=== PATIENT | male | born 1990 | race Caucasian/White ===

== ENCOUNTER 2020-05-12 21:03 | Emergency (ER) | payer MEDICAID ==
[~2020-05-12] VITALS: Ht 175.3 cm; Wt 53.1 kg
[2020-05-12 22:30] LABS: CALCIUM, SERUM 9.1 mg/dL (8.5-10.1); CREATININE 0.6 mg/dL (0.6-1.3); POTASSIUM 3.3 mmol/L (3.5-5.1)
[2020-05-12 22:36] LABS: APPEARANCE,URINE Clear (CLEAR); BASOPHILS # (AUTO) 0.1 /CMM (0.0-0.2); BASOPHILS % (AUTO) 1.1 % (0.0-2.0); BILIRUBIN,URINE Negative (NEGATIVE); BLOOD, URINE Negative Ery/uL (NEGATIVE); COLOR,URINE Yellow (YELLOW); EOSINOPHILS % (AUTO) 0.5 % (0.0-6.0); HEMATOCRIT 42 % (39-51); HEMOGLOBIN 13.8 g/dL (13.5-17.5); KETONES,URINE Negative (NEGATIVE); LEUKOCYTE ESTERASE ,URINE Negative (NEGATIVE); LYMPHOCYTES # (AUTO) 1.9 /CMM (0.8-4.8); LYMPHOCYTES % (AUTO) 26.6 % (20.0-44.0); MEAN CORPUSCULAR HGB CONC 33 g/dl (31.0-36.0); MEAN CORPUSCULAR VOLUME 100 fL (80-96); MONOCYTES # (AUTO) 0.5 /CMM (0.1-1.30); MONOCYTES % (AUTO) 6.8 % (2.0-12.0); NEUTROPHILS # (AUTO) 4.7 /CMM (1.8-8.9); NITRITE, URINE Negative (NEGATIVE); PH,URINE 7.5 (5.0-8.0); PLATELET COUNT (AUTO) 168 /CMM (150-450); PROTEIN,URINE Negative (NEGATIVE); RED BLOOD CELL COUNT(AUTO) 4.22 MIL/uL (4.5-6.0); UGLUCOSE Negative (NEGATIVE); UROBILINOGEN,URINE 0.2 EU/dL (0.2); WHITE BLOOD COUNT (AUTO) 7.2 K/uL (4.3-11.0)
[2020-05-12 22:38] LABS: ALBUMIN 3.6 g/dL (3.4-5.0); BILIRUBIN,DIRECT 0.4 mg/dL (0.0-0.2); BILIRUBIN,TOTAL 0.7 mg/dL (0.2-1.0); TOTAL PROTEIN, SERUM 7.8 g/dL (6.4-8.2)
--- NOTE | 2020-05-12 22:51 | NUR ---
PATIENT CAME TO ER BED 10 C/O VOMITING BLOOD AND NOTICED BLOOD IN THE STOOL FOR ABOUT 1x MONTH. PT STATES THAT HE HAS BEEN DRINKING ALCOHOL EVERYDAY. DENIES EATING BEETS, LICORICE, OR ANY OTHER RED COLORED FOOD. A/Ox4. NO SOB. BREATHING EVENLY AND UNLABORED ON ROOM AIR.
--- NOTE | 2020-05-12 23:42 | NUR ---
Patient discharged to home in stable condition. Written and verbal after care instructions given. Patient verbalizes understanding of instruction.
[2020-05-12 23:43] VITALS: BP 132/80
== END 2020-05-12 23:43 | disposition home or self-care (01) ==
LOC: ER 21:09
DX: K29.20 Alcoholic gastritis without bleeding (principal); F10.10 Alcohol abuse, uncomplicated; Y90.9 Presence of alcohol in blood, level not specified
CPT/HCPCS: 36415; 80048-TC; 80076-TC; 81000-TC; 82272-TC; 83690-TC; 85025-TC

== ENCOUNTER 2020-06-16 21:13 | Emergency (ER) | payer MEDICAID ==
--- NOTE | 2020-06-16 23:05 | NUR ---
CALLED FOR TRIAGE, NO ANSWER
--- NOTE | 2020-06-16 23:34 | NUR ---
CALLED FOR TRIAGE , NO ANSWER
== END 2020-06-16 23:36 | disposition left against medical advice (07) ==
LOC: ER 21:14
DX: Z02.89 Encounter for other administrative examinations (principal); Z53.21 Procedure and treatment not carried out due to patient leaving prior to being seen by health care provider

== ENCOUNTER 2022-05-09 20:53 | Emergency (ER) | payer MEDICAID ==
[~2022-05-09] VITALS: Ht 185.4 cm; Wt 63.5 kg
[2022-05-09 21:50] VITALS: BP 134/82
--- NOTE | 2022-05-09 23:17 | NUR ---
Patient discharged to home in stable condition. Written and verbal after care instructions given. Patient verbalizes understanding of instruction.
== END 2022-05-09 23:16 | disposition home or self-care (01) ==
LOC: ER 20:56
DX: K40.90 Unilateral inguinal hernia, without obstruction or gangrene, not specified as recurrent (principal); F17.200 Nicotine dependence, unspecified, uncomplicated

== ENCOUNTER 2022-11-08 23:34 | Inpatient (IN) | payer MEDICAID ==
[~2022-11-08] VITALS: Ht 162.6 cm; Wt 61.2 kg
[2022-11-09] VITALS (80 sets, daily range): BP systolic 73–170; BP diastolic 29–102
[2022-11-09] MEDS ORDERED: LORAZEPAM INJ 2 MG/ML VIAL ONE ×2 (00:24→03:39)
[2022-11-09] MEDS ORDERED: ONDANSETRON HCL/PF 4 MG/2 ML VIAL ONE (00:25)
[2022-11-09] MEDS ORDERED: ONDANSETRON HCL/PF 4 MG/2 ML VIAL IV ONE (00:30)
[2022-11-09] MEDS ORDERED: LORAZEPAM INJ 2 MG/ML VIAL IV ONE ×3 (00:30→03:30)
[2022-11-09] MEDS ORDERED: IV NS 0.9% 1,000 ML BAG IV ONE (00:30)
--- NOTE | 2022-11-09 00:30 | NUR ---
Pt is noted alert, responsive as he came from home C/O N/V/D and Dizziness since 4PM and He admited off taken [place] and smoking. Pt care continue.
--- NOTE | 2022-11-09 00:37 | NUR ---
FILM FLAT INSPECTOR AT PT'S BEDSIDE
--- NOTE | 2022-11-09 00:38 | NUR ---
Pt is noted nonresponsive as MD is noted. Pt care continue.
[2022-11-09] MEDS ORDERED: Thiamine 100 MG/ML VIAL ONE (00:39)
--- NOTE | 2022-11-09 00:39 | NUR ---
is at bed assessing Pt . Pt care continue.
--- NOTE | 2022-11-09 00:40 | NUR ---
Ativan 1mg IVP wasted with the Help off HARRIETT Ulloa. Pt care continue.
--- NOTE | 2022-11-09 00:54 | NUR ---
Ativen 1mg IVP is held due to Pt change in conditions. Pt care continue.
[2022-11-09] MEDS ORDERED: Magnesium 1GM/D5W 100ML PREMIX 100 ML IV ONE (00:56)
[2022-11-09] MEDS ORDERED: Thiamine 500 MG in IV D5W 50 ML IV ONE (01:00)
[2022-11-09] MEDS ORDERED: Magnesium 1 GM/2 ML VIAL IV ONE (01:00)
[2022-11-09 01:06] LABS: BASOPHILS % (AUTO) 0.2 % (0.0-2.0); LYMPHOCYTES # (AUTO) 1.5 K/uL (0.8-4.8); LYMPHOCYTES % (AUTO) 14.1 % (20.0-44.0); MEAN CORPUSCULAR HGB CONC 31 g/dl (31.0-36.0); MEAN CORPUSCULAR VOLUME 90 fL (80-96); MONOCYTES # (AUTO) 0.8 K/uL (0.1-1.30); MONOCYTES % (AUTO) 7.8 % (2.0-12.0); NEUTROPHILS # (AUTO) 8.2 K/uL (1.8-8.9); NEUTROPHILS % (AUTO) 77.9 % (43.0-81.0); RED BLOOD CELL COUNT(AUTO) 1.77 MIL/uL (4.5-6.0); WHITE BLOOD COUNT (AUTO) 10.5 K/uL (4.3-11.0)
[2022-11-09 01:07] LABS: HEMOGLOBIN 4.8 g/dL (13.5-17.5)
--- NOTE | 2022-11-09 01:07 | NUR ---
HGB 4.8 HCT 16 made aware
[2022-11-09 01:08] LABS: HEMATOCRIT 16 % (39-51); PLATELET COUNT (AUTO) 43 K/uL (150-450)
[2022-11-09 01:10] LABS: ALCOHOL, BLOOD < 3 mg/dL (0-0); CALCIUM, SERUM 7.3 mg/dL (8.5-10.1); CREATININE 1.4 mg/dL (0.6-1.3); MAGNESIUM 1.3 mg/dL (1.8-2.4); POTASSIUM 4.6 mmol/L (3.5-5.1); SERUM AMMONIA 141 umol/L (11-32)
--- NOTE | 2022-11-09 01:10 | NUR ---
COVID ANTIGEN SWAB COLLECTED AND SENT TO LAB
[2022-11-09 01:15] LABS: BILIRUBIN,DIRECT 4.7 mg/dL (0.0-0.2); BILIRUBIN,TOTAL 7.4 mg/dL (0.2-1.0); TOTAL PROTEIN, SERUM 5.6 g/dL (6.4-8.2)
[2022-11-09 01:21] LABS: ALBUMIN 1.4 g/dL (3.4-5.0)
[2022-11-09] MEDS ORDERED: IV NS 0.9% 1,000 ML IV ONE (01:30)
--- NOTE | 2022-11-09 01:44 | NUR ---
[facility] edna in [facility] - 11/09/22 at 0150 by [email or web address] Pt care continuer as he refused to signed Blood consent and he is been monitor closely .
--- NOTE | 2022-11-09 01:45 | NUR ---
PT'S MOTHER MELISSA SIGNED BLOOD TRANSFUSION CONSENT FORM; VERBALIZED UNDERSTANDING.
--- NOTE | 2022-11-09 01:51 | NUR ---
Pt care continue as consent is now by Pt Mother as pt is been forgetful.
--- NOTE | 2022-11-09 01:55 | NUR ---
CALLED PANEL, ONCAL: LOYD HURD
--- NOTE | 2022-11-09 02:08 | NUR ---
PAGED [employer] FOR THE THIRD TIME.
[2022-11-09 02:10] LABS: BASOPHILS % (MANUAL) 0 % (0.0-2.0); EOSINOPHILS % (MANUAL) 0 % (0-4); LYMPHOCYTES % (MANUAL) 12 % (16-48); MONOCYTES % (MANUAL) 9 % (0-11.0); NEUTROPHILS % (MANUAL) 79 (42-76)
--- NOTE | 2022-11-09 02:28 | NUR ---
DR TOSHA RUSSO, BACK UP WAS PAGED FOR PANEL CALL.
[2022-11-09] MEDS ORDERED: PHYTONADIONE INJ 10 MG in IV D5W 50 ML SQ ONE (03:00)
--- NOTE | 2022-11-09 03:10 | NUR ---
Pt care continue as pt is been admitted to ICU Room 254 and report is given to HARRIETT Lr but Pt is still here as awaits Admitting orders .
[2022-11-09] MEDS ORDERED: IOHEXOL-300 100 ML VIAL IV ONE (03:16)
[2022-11-09] MEDS ORDERED: IV NS 0.9% 250 ML IV ONE (03:16)
[2022-11-09] MEDS ORDERED: CT SWABBABLE VALVE TRANS SET 1 EA INFUS.SET MC ONE (03:16)
[2022-11-09] MEDS ORDERED: PHYTONADIONE INJ 10 MG/1 ML AMPUL ONE (03:18)
[2022-11-09] MEDS ORDERED: FOLIC ACID 1 MG TABLET ONE (03:19)
[2022-11-09] MEDS ORDERED: Z GUARD REMEDY 4 OZ OINT TP PRN (03:30)
[2022-11-09] MEDS ORDERED: ONDANSETRON HCL/PF 4 MG/2 ML VIAL IVP PRN (03:30)
[2022-11-09] MEDS: LACTULOSE 10 G/15 ML UDC (PYXIS) PO SCH ×4 (03:30→21:30)
[2022-11-09] MEDS ORDERED: LORAZEPAM INJ 2 MG/ML VIAL IV PRN (03:30)
[2022-11-09] MEDS ORDERED: ACETAMINOPHEN 325 MG TABLET PO PRN (03:30)
--- NOTE | 2022-11-09 03:45 | NUR ---
Pt is noted off the unit to ICU Room 254.
[2022-11-09] MEDS: FOLIC ACID 1 MG TABLET PO SCH ×2 (03:56→09:00)
--- NOTE | 2022-11-09 04:00 | NUR ---
RESTAURANT BUSSER INITIAL NOTE PT ARRIVED TO UNIT VIA GURNEY WITH ADMITTING DX OF ACUTE LIVER INJURY AND ETOH ENCEPHALOPATHY. NO OTHER PERTINENT MEDICAL HISTORY EXCEPT FOR ALCOHOL-USE AND LAST TIME PT HAD A DRINK WAS ON 11/08. PT APPEARS TO BE EXTREMELY LETHARGIC, UNABLE TO OPEN EYES, UNABLE TO FOLLOW SIMPLE COMMANDS. PT ON ROOM AIR WITH CURRENT O2SAT OF 100%; NO S/S OF RESP DISTRESS, NO SOB OR COUGH, NON-LABORED AND EQUAL BREATHING. PT ATTACHED TO BEDSIDE MONITOR, ST WITH HR OF 106. IV ACCESS ON LEFT HAND 20G, RIGHT HAND 20G, RAC 20G; LR INFUSING AT 125 ML/HR. SKIN ASSESSMENT PERFORMED, NOTED TO BE JAUNDICED AND NOTED TO HAVE BRUISING ON BLE. ALL BELONGINGS CHECKED AND ACCOUNTED FOR. BED IN LOWEST POSITION, CALL LIGHT WITHIN REACH, SIDE RAILS UP X3. WILL INITIATE PLAN OF CARE.
--- NOTE | 2022-11-09 04:30 | NUR ---
RN NOTE PRBC TRANSFUSION STARTED AT THIS TIME WITH VSS.
--- NOTE | 2022-11-09 05:54 | NUR ---
RN NOTE PT NOTED TO HAVE ATIVAN 2 MG AND LACTULOSE 20 G SCHEDULED FOR 329; HOWEVER, PT HAD ALREADY RECEIVED ATIVAN 2 MG IN ER AND IS FOUND TO BE EXTREMELY LETHARGIC, UNABLE TO OPEN EYES AND FOLLOW SIMPLE COMMANDS; TOSHA RUSSO NOTIFIED WITH NO RESPONSE, BUT DECIDED WITH GAMBRELER MILTON THAT PT IS TOO LETHARGIC TO GIVE ANOTHER DOSE OF ATIVAN. LACTULOSE ALSO NOT ADMINISTERED AT THIS TIME D/T NPO DIAGNOSIS SECONDARY TO AMS/LETHARGY.
--- NOTE | 2022-11-09 07:15 | NUR ---
PROGRAM STRATEGIST Bedside report taken from [facility] nurse Princess LORENZANA. pt lethargic/drowsy, does not open eyes, nonverbal, incomprehensible sounds. perrla. pt on room air, tolerating well. spo2 100%, betina lung sounds clear/diminished. pt NSR on monitor hr 90-100, bue and ble pulses present. pt NPO d/t mental status. bowel sounds present, abd soft to touch, non distended. pt incontinent of urine and stool. pt jaundice in color with generalized bruising. all lines traced. all drips verified. safety measures in place. 1 unit prbc completed by [facility] nurse. 3 ffp and 3 plt pending, awaiting to be ready from pharmacy. Addendum: 11/09/22 at 0748 by [facility] RN2 RN blood bank*
[2022-11-09] MEDS: IV LR 1000 ML 1,000 ML IV PRN ×2 (07:44→13:14)
--- NOTE | 2022-11-09 08:38 | NUR ---
MOTION PICTURE SCENE BUILDER Dr White at beside assessing pt and updated on pt status. md aware that pt active GI bleed with large mount of black tarry stools. pt unresponsive, on room air, does not open eyes or follow commands, w/d to painful stimuli, spo2 100%. md aware that pt has urinary retention, and npo d/t mental status, unable to place ngt d/t esophageal varices. new orders from md to place patino catheter and flexiseal. other new orders pending. charge nurse Jalen RN talking with Dr White about pt plan of care and line insertion.
[2022-11-09] MEDS ORDERED: PANTOPRAZOLE 40 MG VIAL IV SCH (09:00)
[2022-11-09] MEDS: RIFAXIMIN 550 MG TABLET PO SCH ×2 (09:00→16:51)
--- NOTE | 2022-11-09 09:00 | NUR ---
MAKE READY WORKER Pt bathed and cleaned. large black tarry stool noted, skin check done, no wounds noted. skin intact. flexiseal placed per md order, no resistence noted. patino placed per md, sterile technique used, no resistence noted and 500ml output immediately drained. pt tolerated well. 1 unit ffp infusing at this time. will continue to monitor.
[2022-11-09 09:06] LABS: ABG OXYGEN SATURATION 54.2 % (92.0-98.5); ABG PCO2 23.1 mmHg (35.0-45.0); ABG PH 7.376 (7.350-7.450); ABG PO2 31.6 mmHg (75.0-100.0); AaDO2 90.5 mmHg; COHb 1.5 % (0.5-1.5); MetHb 0.8 % (0.0-1.5); SITE, ABG Right Femoral; VENT MODE, BG ROOM AIR
[2022-11-09] MEDS: Magnesium 1GM/D5W 100ML PREMIX 100 ML IV SCH ×4 (10:06→13:20)
[2022-11-09] MEDS: Thiamine 100 MG in IV D5W 50 ML IV SCH (10:18)
[2022-11-09] MEDS: OCTREOTIDE 500 MCG in IV NS 0.9% 99 ML IV PRN (10:19)
--- NOTE | 2022-11-09 11:14 | NUR ---
RESTAURANT MANAGER Urine lab collected, placed in specimen fridge and lab called for pickup. pickup pending.
[2022-11-09] MEDS ORDERED: PHYTONADIONE INJ 10 MG/1 ML AMPUL SQ ONE (11:30)
--- NOTE | 2022-11-09 11:34 | NUR ---
CLIENT SERVICES DIRECTOR Consent for EGD, Colonoscopy and Anesthesia precedures explained to pt mother and father, signed by pt mother, witnessed with charge nurse Jalen LORENZANA and placed in pt chart. pt parents verbalized understanding of procedures and have no questions at this time.
[2022-11-09] MEDS ORDERED: diphenhydrAMINE HCL 50 MG/ML VIAL IV ONE (12:00)
[2022-11-09] MEDS ORDERED: ACETAMINOPHEN 325 MG TABLET PO ONE (12:00)
[2022-11-09] MEDS ORDERED: PHYTONADIONE INJ 10 MG in IV D5W 50 ML IV ONE (12:00)
[2022-11-09] MEDS: PANTOPRAZOLE 80 MG in IV NS 0.9% 500 ML IV PRN ×2 (12:43→22:56)
[2022-11-09 13:30] LABS: BILIRUBIN,URINE NEGATIVE (NEGATIVE); COLOR,URINE DARK YELLOW (YELLOW); LEUKOCYTE ESTERASE ,URINE NEGATIVE (NEGATIVE); NITRITE, URINE NEGATIVE (NEGATIVE); PROTEIN,URINE NEGATIVE (NEGATIVE); UGLUCOSE NEGATIVE (NEGATIVE); UROBILINOGEN,URINE 0.2 EU/dL (0.2)
[2022-11-09 13:33] LABS: CREATININE, URINE 53.5 MG/DL (30.0-125.0)
--- NOTE | 2022-11-09 13:38 | NUR ---
ORGANIZATIONAL PSYCHOLOGIST 2nd FFP transfusion completed. went to blood bank to fern picker 3rd FFP, no ready at this time, per tech product needs to be thawed, lab to call ICU when ready for pickup. plts [facility] has not been delivered at this time, will call ICU when units available charge nurse Jalen RN aware.
[2022-11-09 13:39] LABS: BACTERIA,URINE Rare /HPF (None Seen); RBC,URINE 0-2 /HPF (0-2); SQUAMOUS EPITHELIAL CELL,UR Few /HPF (None Seen); WBC,URINE 0-2 /HPF (0-3)
[2022-11-09 14:40] LABS: BASOPHILS % (AUTO) 0.4 % (0.0-2.0); WHITE BLOOD COUNT (AUTO) 8.7 K/uL (4.3-11.0)
--- NOTE | 2022-11-09 14:43 | NUR ---
AIRCREWMAN Consent for PICC line placement explained to pt mother and father. consent obtained from pt mother, and placed in pt chart. pt parents understand procedure and have no questions at this time.
[2022-11-09 14:46] LABS: EOSINOPHILS % (AUTO) 5.8 % (0.0-6.0); LYMPHOCYTES # (AUTO) 0.5 K/uL (0.8-4.8); LYMPHOCYTES % (AUTO) 5.5 % (20.0-44.0); MEAN CORPUSCULAR HGB CONC 28 g/dl (31.0-36.0); MEAN CORPUSCULAR VOLUME 105 fL (80-96); MONOCYTES # (AUTO) 0.8 K/uL (0.1-1.30); MONOCYTES % (AUTO) 9.1 % (2.0-12.0); NEUTROPHILS # (AUTO) 6.9 K/uL (1.8-8.9); NEUTROPHILS % (AUTO) 79.2 % (43.0-81.0)
[2022-11-09 15:05] LABS: RED BLOOD CELL COUNT(AUTO) 1.34 MIL/uL (4.5-6.0)
[2022-11-09 15:08] LABS: HEMATOCRIT 14 % (39-51); PLATELET COUNT (AUTO) 30 K/uL (150-450)
--- NOTE | 2022-11-09 15:12 | NUR ---
PRODUCTION CONTROL MANAGER Went to blood bank to pick pulling machine tender FFP per tech unit is not ready yet, icu will be called when ready. asked about Plts, plts [facility] has not arrived at this time, eta 3 hrs. charge nurse Jalen LORENZANA aware.
--- NOTE | 2022-11-09 15:30 | NUR ---
DIRECTOR OF MEDICAL SERVICES Dr White messaged by charge nurse Jalen RN and made aware that pt hgb 4.0 new orders entered for 2 units PRBC by charge nurse Jalen RN. no other orders at this time.
--- NOTE | 2022-11-09 15:50 | NUR ---
charge nurse Jalen RN aware that PICC RN will place PICC line around 5pm.
[2022-11-09 16:01] LABS: IRON, SERUM 76 ug/dl (50-175); TOTAL IRON BINDING CAPACITY 121 ug/dl (250-450)
[2022-11-09 16:02] LABS: ALBUMIN 1.6 g/dL (3.4-5.0); BILIRUBIN,TOTAL 6.6 mg/dL (0.2-1.0); CALCIUM, SERUM 7.4 mg/dL (8.5-10.1); CREATININE 1.8 mg/dL (0.6-1.3); MAGNESIUM 3.1 mg/dL (1.8-2.4); PHOSPHORUS 5.8 mg/dL (2.5-4.9); POTASSIUM 4.8 mmol/L (3.5-5.1); TOTAL PROTEIN, SERUM 4.7 g/dL (6.4-8.2)
[2022-11-09 16:15] LABS: FERRITIN 118 ng/mL (8-388)
--- NOTE | 2022-11-09 16:24 | NUR ---
HOSPITAL CORPSMAN Dr White messaged by charge nurse Jalen LORENZANA and made aware of pt critical glucose 50, awaiting for new orders.
--- NOTE | 2022-11-09 16:54 | NUR ---
FLOOR LAYER TILE 1 unit prbc transfusing @ 150 ml/hr d/t hemodynamic instability per charge nurse Jalen LORENZANA. D 50 given for hypoglycemia, will recheck bs.
[2022-11-09] MEDS ORDERED: DEXTROSE 50%-WATER 50 ML DISP.SYRIN IVP ONE (17:00)
--- NOTE | 2022-11-09 17:30 | NUR ---
DREDGE PUMP OPERATOR repeat BS 110, no interventions needed
--- NOTE | 2022-11-09 17:53 | NUR ---
EQUIPMENT SERVICE TECHNICIAN PICC RN at bedside placing PICC line. pt unresponsive, tolerating well. vitals stable. will continue to monitor.
--- NOTE | 2022-11-09 18:18 | NUR ---
SERVICES HOST 181- Pt HR was 90s and caro down to hr 30s and then PEA code blue called. RN x4, RT x4 and ER Dr Branham at bedside as well as nursing surface supervisor jameel LORENZANA and charge nurse Jalen RN. 1818 Epi given 1821- ROSC achieved 1826- Levophed drip started at 0.1 mcg/kg/ min 1834 Bicarb push x1 given 1835- epi given See Code blue sheets for details on gabrielle riley 1838- Dr Branham at bedside pt given 10 mg Etomidate and 60 mg rocuronium 184- pt intubated 7.5 and 24 cm at the lip placed on ventilator, no sedation. pt tolerating well. vitals holding at this time. pt prepped and awaiting to be taken to OR/ GI lab for EGD.
--- NOTE | 2022-11-09 18:30 | NUR ---
pt. intubated by dr sanabria for airway protection and post CPR. intubated by dr. sanabria with 7.5 et tube secured @ 24 cm lipline. co2 detector changed to yellow color post intubation. breath sounds coarse rhonchi bilateral with symmetrical chest rise post intubation. vent settings below as ordered: ac 20 vt 500 ml fio2 100% peep +5 vent plugged into red outlet with alarms on and functioning. bvm @ bedside Addendum: 11/09/22 at 1914 by LISA RIDLEY RT Amended: Links added.
[2022-11-09 18:38] LABS: LYMPHOCYTES % (MANUAL) 8 % (16-48); MONOCYTES % (MANUAL) 3 % (0-11.0); NEUTROPHILS % (MANUAL) 89 (42-76)
[2022-11-09 19:13] LABS: BASOPHILS # (AUTO) 0.1 K/uL (0.0-0.2); BASOPHILS % (AUTO) 0.5 % (0.0-2.0); EOSINOPHILS % (AUTO) 15.9 % (0.0-6.0); LYMPHOCYTES # (AUTO) 1.8 K/uL (0.8-4.8); LYMPHOCYTES % (AUTO) 15.4 % (20.0-44.0); MEAN CORPUSCULAR HGB CONC 28 g/dl (31.0-36.0); MEAN CORPUSCULAR VOLUME 104 fL (80-96); MONOCYTES # (AUTO) 1.6 K/uL (0.1-1.30); MONOCYTES % (AUTO) 13.5 % (2.0-12.0); NEUTROPHILS # (AUTO) 6.3 K/uL (1.8-8.9); NEUTROPHILS % (AUTO) 54.7 % (43.0-81.0); WHITE BLOOD COUNT (AUTO) 11.6 K/uL (4.3-11.0)
--- NOTE | 2022-11-09 19:19 | NUR ---
WOOD MACHINIST Bedside report given to [facility] nurse Lr RN. pt unresponsive s/p code blue, unresponsive, pt 4 pupils fixed,, pt has no responses. pt actively bleeding orally, rectally and from piv and picc puncture sites. 1 unit prbc currently infusing with 3 units prbc ordered and awaiting to be ready for pharmacy picking technician from blood bank. family at bedside was updated by ER dr Branham. all lines traced. all drips verified. pt to go to EGD with Dr Carver , endorsed to [facility] nurse.
[2022-11-09 19:28] LABS: RED BLOOD CELL COUNT(AUTO) 1.79 MIL/uL (4.5-6.0)
[2022-11-09 19:32] LABS: HEMATOCRIT 19 % (39-51); HEMOGLOBIN 5.2 g/dL (13.5-17.5)
[2022-11-09 19:33] LABS: PLATELET COUNT (AUTO) 27 K/uL (150-450)
--- NOTE | 2022-11-09 19:37 | NUR ---
GROVE WORKER Charge nurse Jalen LORENZANA and Charge nurse Mauri RN at bedside discussing events and pt plan of care.
[2022-11-09 19:46] LABS: CALCIUM, SERUM 7.5 mg/dL (8.5-10.1); POTASSIUM 4.5 mmol/L (3.5-5.1)
[2022-11-09] MEDS ORDERED: ROCURONIUM BROMIDE 50 MG/5 ML IV ONE (19:47)
[2022-11-09] MEDS ORDERED: SODIUM BICARBONATE SYR 50 MEQ/50 ML DISP.SYRIN IV ONE ×2 (19:47→21:00)
[2022-11-09] MEDS ORDERED: EPINEPHRINE (1:10,000) SYRINGE 1 MG/10 ML DISP.SYRIN IVP ONE (19:47)
[2022-11-09] MEDS ORDERED: NOREPINEPHRINE 8MG/250ML D5W RTU IV ONE (19:47)
[2022-11-09] MEDS ORDERED: ETOMIDATE 2 MG/ML VIAL IV ONE (19:47)
[2022-11-09] MEDS ORDERED: DEXTROSE 50%-WATER 50 ML DISP.SYRIN IV ONE (19:47)
--- NOTE | 2022-11-09 19:52 | NUR ---
RN NOTE 4TH BAG OF RBC INFUSING WITH VITAL SIGNS STABLE.
--- NOTE | 2022-11-09 20:00 | NUR ---
TILE GRINDER OPENING NOTE PT RECEIVED IN BED, POST-CODE BLUE WITH FAMILY AT BEDSIDE. ROSC ACHIEVED AND IS CURRENTLY INTUBATED WITH SIZE 7.5, MARKED 24 CM AT THE LIP WITH CURRENT O2SAT OF 100%; NO S/S OF RESP DISTRESS, NO SOB, NON-LABORED AND EQUAL BREATHING; NOTED TO HAVE BLOODY SECRETIONS FROM MOUTH. PT OBTUNDED, DOES NOT OPEN EYES, PUPILS ARE +4, SLUGGISH IN RESPONSE. PT ATTACHED TO THE BEDSIDE MONITOR, SR WITH HR OF 96. CAMACHO INTACT AND PATENT, DRAINING CLEAR AND LAM URINE. FLEXISEAL IN PLACE, DRAINING DARK AND TARRY STOOLS. GENOVEVA PICC INTACT AND PATENT, NOTED TO HAVE BLEEDING FROM PICC SITE; LEVO AT 0.3 MCG/KG/MIN, PROTONIX 50 ML/HR, OCTREOTIDE AT 25 MCG/HR, AND LR AT 125 ML/HR. BED IN LOWEST POSITION, CALL LIGHT WITHIN REACH, SIDE RAILS UP. WILL CONTINUE TO MONITOR THROUGHOUT THE NIGHT.
[2022-11-09 20:21] LABS: ABG BASE EXCESS -24.9 mmol/L; ABG PCO2 47.6 mmHg (35.0-45.0); ABG PH 6.811 (7.350-7.450); ABG PO2 189.2 mmHg (75.0-100.0); AaDO2 476.2 mmHg; COHb 1.5 % (0.5-1.5); MetHb 0.5 % (0.0-1.5); PEEP,BG 5 cm H2O; SITE, ABG Right Radial; VENT MODE, BG ac 20 500 100 +5; VT, ABG 500 mL
[2022-11-09] MEDS ORDERED: NOREPINEPHRINE 8 MG in IV NS 0.9% 242 ML IV PRN (20:30)
--- NOTE | 2022-11-09 20:35 | NUR ---
DR. DAVIS ALONG WITH SURGICAL TEAM AT BEDSIDE FOR EGD
[2022-11-09] MEDS: CEFTRIAXONE 1 G in IV D5W 50 ML IV SCH (20:56)
[2022-11-09] MEDS ORDERED: Sodium Bicarbonate 150 MEQ in IV D5W 1,000 ML IV PRN (21:00)
--- NOTE | 2022-11-09 21:11 | NUR ---
EGD PROCEDURE FINISHED AT THIS TIME WITH FINDINGS OF SEVERE ESOPHAGEAL VARICES.
[2022-11-09] MEDS: Sodium Bicarbonate 150 MEQ in IV D5W 1,000 ML IV SCH (21:28)
[2022-11-09] MEDS ORDERED: ANESTHESIA TRAY IN PYXIS 1 EA TRAY MC ONE (21:31)
--- NOTE | 2022-11-09 22:18 | NUR ---
4TH BAG OF RBC FINISHED AT THIS TIME WITH NO COMPLICATIONS NOTED, VITAL SIGNS REMAIN STABLE.
--- NOTE | 2022-11-09 22:42 | NUR ---
RN NOTE 5TH BAG OF RBC STARTED. VITALS WITHIN NORMAL LIMITS
[2022-11-10] VITALS (102 sets, daily range): BP systolic 61–132; BP diastolic 27–79
--- NOTE | 2022-11-10 00:19 | NUR ---
MELISSA LONDON (PT'S MOTHER): JERMAINE (PT'S BROTHER):
[2022-11-10 00:32] LABS: ABG BASE EXCESS -19.8 mmol/L; ABG OXYGEN SATURATION 95.1 % (92.0-98.5); ABG PCO2 44.8 mmHg (35.0-45.0); ABG PH 6.985 (7.350-7.450); ABG PO2 102.4 mmHg (75.0-100.0); AaDO2 565.8 mmHg; COHb 0.8 % (0.5-1.5); MetHb 0.2 % (0.0-1.5); O2Hb 94.1 % (94.0-97.0); PEEP,BG 5 cm H2O; SITE, ABG Left Brachial; VT, ABG 500 mL
[2022-11-10] MEDS: NOREPINEPHRINE 32 MG in IV NS 0.9% 218 ML IV PRN ×6 (01:15→22:08)
--- NOTE | 2022-11-10 01:41 | NUR ---
5TH BAG OF RBC FINISHED AT THIS TIME, TOLERATED WELL WITH STABLE VITAL SIGNS
[2022-11-10] MEDS ORDERED: SODIUM BICARBONATE SYR 50 MEQ/50 ML DISP.SYRIN ONE (01:52)
[2022-11-10] MEDS ORDERED: OCTREOTIDE 500 MCG/ML VIAL ONE (01:53)
[2022-11-10] MEDS: OCTREOTIDE 500 MCG in IV NS 0.9% 99 ML IV PRN ×3 (01:55→19:43)
[2022-11-10] MEDS: IV LR 1000 ML 1,000 ML IV PRN (02:47)
[2022-11-10] MEDS: LACTULOSE 10 G/15 ML UDC (PYXIS) PO SCH ×4 (02:58→21:01)
[2022-11-10] MEDS: Sodium Bicarbonate 150 MEQ in IV D5W 1,000 ML IV SCH ×2 (03:12→08:41)
--- NOTE | 2022-11-10 03:46 | NUR ---
RN NOTE PT NOTED TO DESATURATE AT AROUND 0245 WITH LOWEST O2SAT NOTED TO BE 84%. CALLED [facility] RECEIVED ORDER TO INCREASE TV FROM 500 TO 600 AND TO GIVE 1 AMP OF BICARB. ORDERS CARRIED OUT.
[2022-11-10] MEDS ORDERED: SODIUM BICARBONATE SYR 50 MEQ/50 ML DISP.SYRIN IV ONE (04:00)
[2022-11-10 04:43] LABS: CALCIUM, SERUM 6.7 mg/dL (8.5-10.1); CREATININE 2.2 mg/dL (0.6-1.3); MAGNESIUM 3.3 mg/dL (1.8-2.4); POTASSIUM 4.1 mmol/L (3.5-5.1)
[2022-11-10 04:48] LABS: THYROID STIMULATING HORMONE 0.681 uIU/mL (0.358-3.74)
[2022-11-10 04:49] LABS: PHOSPHORUS 11.1 mg/dL (2.5-4.9)
[2022-11-10 04:58] LABS: C-REACTIVE PROTEIN 0.4 mg/dL (0.0-0.9)
[2022-11-10 05:22] LABS: EOSINOPHILS % (AUTO) 4.7 % (0.0-6.0); HEMATOCRIT 21 % (39-51); LYMPHOCYTES # (AUTO) 0.6 K/uL (0.8-4.8); LYMPHOCYTES % (AUTO) 43.7 % (20.0-44.0); MEAN CORPUSCULAR HGB CONC 31 g/dl (31.0-36.0); MEAN CORPUSCULAR VOLUME 94 fL (80-96); MONOCYTES # (AUTO) 0.1 K/uL (0.1-1.30); NEUTROPHILS # (AUTO) 0.6 K/uL (1.8-8.9); NEUTROPHILS % (AUTO) 45.6 % (43.0-81.0); RED BLOOD CELL COUNT(AUTO) 2.28 MIL/uL (4.5-6.0)
[2022-11-10 05:28] LABS: HEMOGLOBIN 6.6 g/dL (13.5-17.5); PLATELET COUNT (AUTO) 21 K/uL (150-450); WHITE BLOOD COUNT (AUTO) 1.3 K/uL (4.3-11.0)
--- NOTE | 2022-11-10 06:00 | NUR ---
RN NOTE RECEIVED CRITICAL FROM LAB, HGB 6.6, TRENDING UP FROM 5.2. WBC 1.3 AND PLTS 21, NOTED TO BE TRENDING DOWN FROM 11.6 AND 27, RESPECTIVELY. JOSE DIAMOND NOTIFIED, AWAITING RESPONSE.
--- NOTE | 2022-11-10 08:30 | NUR ---
DR WILBURN NEW ORDERS OF PRBC X 1UNIT AND PLATELETS X1 UNIT
[2022-11-10 08:50] LABS: ABG BASE EXCESS -1.2 mmol/L; ABG PCO2 77.4 mmHg (35.0-45.0); ABG PO2 36.9 mmHg (75.0-100.0); COHb 1.3 % (0.5-1.5); MetHb 0.7 % (0.0-1.5); O2Hb 57.8 % (94.0-97.0); SITE, ABG Other
[2022-11-10] MEDS ORDERED: ACETAMINOPHEN 325 MG TABLET PO ONE ×2 (09:00→12:00)
[2022-11-10] MEDS ORDERED: diphenhydrAMINE HCL 50 MG/ML VIAL IV ONE ×2 (09:00→12:00)
[2022-11-10] MEDS: RIFAXIMIN 550 MG TABLET PO SCH ×2 (09:00→16:30)
[2022-11-10] MEDS: PANTOPRAZOLE 80 MG in IV NS 0.9% 500 ML IV PRN ×2 (09:06→19:10)
[2022-11-10] MEDS: Thiamine 100 MG in IV D5W 50 ML IV SCH (09:59)
[2022-11-10] MEDS ORDERED: Sodium Bicarbonate 150 MEQ in IV D5W 1,000 ML IV SCH ×2 (10:00→19:00)
[2022-11-10] MEDS: PHENYLEPHRINE 50 MG in IV NS 0.9% 245 ML IV PRN ×3 (10:16→21:47)
--- NOTE | 2022-11-10 11:00 | NUR ---
RT PER DR BOB VT INCREASED TO 625, AND PEEP TO 8 Addendum: 11/10/22 at 1101 by RUCHI GOETZ RT Amended: Links added.
[2022-11-10] MEDS ORDERED: ACETAMINOPHEN 325 MG/SUPP.RECT RC ONE (12:00)
--- NOTE | 2022-11-10 12:08 | NUR ---
OKAY TO GIVE BENADRYL IVP NOW PER REJI PRIOR CRYO TRANSFUSION; TOTAL 10UNITS CRYO TODAY, TYLENOL D/Cd BY REJI.
[2022-11-10 13:26] LABS: BASOPHILS % (MANUAL) 0 % (0.0-2.0); EOSINOPHILS % (MANUAL) 0 % (0-4); LYMPHOCYTES % (MANUAL) 41 % (16-48); MONOCYTES % (MANUAL) 8 % (0-11.0); NEUTROPHILS % (MANUAL) 51 (42-76)
[2022-11-10] MEDS ORDERED: FILGRASTIM (300 MCG) 300 MCG/ML VIAL SQ SCH (15:00)
[2022-11-10] MEDS ORDERED: TBO-FILGRASTIM 300 MCG/0.5 ML SYRINGE SQ SCH (16:00)
--- NOTE | 2022-11-10 16:33 | NUR ---
DR WILBURN MADE AWARE OF RIFAXIMIN ORAL NOT BEING GIVEN SINCE YESTERDAY DUE TO NPO STATUS OF PATIENT, MD STATES "THAT'S FINE.", NEW ORDER PITRESSIN. PHARMACIST-TRI MADE AWARE AND PER TRI "WILL DELIVER PITRESSIN WHEN IT'S READY.", CHARGE NURSE-ROSANNA AWARE.
[2022-11-10] MEDS ORDERED: VASOPRESSIN INJ 40 UNIT in IV NS 0.9% 38 ML IV PRN ×5 (17:00→21:30)
--- NOTE | 2022-11-10 18:40 | NUR ---
ALL DUE MEDS GIVEN, CRYO X 10UNITS AND PRBC X 1 UNIT GIVEN NO ADVERSE REACTION NOTED; MD WILBURN AWARE OF LOW BP, PRESSORS MAXED OUT.
[2022-11-10] MEDS: CEFTRIAXONE 1 G in IV D5W 50 ML IV SCH (19:43)
[2022-11-10] MEDS: VASOPRESSIN INJ 40 UNIT in IV NS 0.9% 38 ML IV PRN ×2 (20:03→20:14)
--- NOTE | 2022-11-10 22:19 | NUR ---
BLOOD BANK CALLED REGARDING ORDER FOR PLTS; PER CLS, PLTS HAVE ARRIVED BUT STILL HAVE TO BE PROCESSED AND WILL CALL ONCE READY
--- NOTE | 2022-11-10 22:48 | NUR ---
RN NOTE PT'S BP NOTED TO BE IN THE 70S WITH THREE PRESSORS (LEVO, RAOUL, VASO) ALL MAXED OUT. JOSE AUSTINCA NOTIFIED WITH ORDER TO START EPI AND STAT CBC.
[2022-11-10] MEDS ORDERED: EPINEPHRINE (1:1000) 10 MG in IV NS 0.9% 240 ML IV PRN (23:00)
[2022-11-10 23:01] LABS: MONOCYTES # (AUTO) 0.1 K/uL (0.1-1.30); NEUTROPHILS # (AUTO) 0.8 K/uL (1.8-8.9)
[2022-11-10 23:10] LABS: BASOPHILS % (AUTO) 1.6 % (0.0-2.0); EOSINOPHILS % (AUTO) 5.8 % (0.0-6.0); LYMPHOCYTES # (AUTO) 0.7 K/uL (0.8-4.8); LYMPHOCYTES % (AUTO) 39.5 % (20.0-44.0); MEAN CORPUSCULAR HGB CONC 31 g/dl (31.0-36.0); MEAN CORPUSCULAR VOLUME 94 fL (80-96); MONOCYTES % (AUTO) 5.5 % (2.0-12.0); NEUTROPHILS % (AUTO) 47.6 % (43.0-81.0)
[2022-11-10 23:13] LABS: RED BLOOD CELL COUNT(AUTO) 1.94 MIL/uL (4.5-6.0)
--- NOTE | 2022-11-10 23:14 | NUR ---
RN [facility] NOTIFIED OF HGB/HCT OF 5.6/18. WITH ORDER TO CANCEL EPI AND FOR 2 UNITS OF PRBCS. ORDER CARRIED OUT.
[2022-11-10 23:16] LABS: HEMATOCRIT 18 % (39-51); HEMOGLOBIN 5.6 g/dL (13.5-17.5); PLATELET COUNT (AUTO) 10 K/uL (150-450); WHITE BLOOD COUNT (AUTO) 1.7 K/uL (4.3-11.0)
[2022-11-11] VITALS (15 sets, daily range): BP systolic 50–89; BP diastolic 16–60
--- NOTE | 2022-11-11 01:05 | NUR ---
RN NOTE RECTAL THERMOMETER INSERTED WITH TEMP OF 87.5. MARY HUGGER APPLIED WITH ACTIVE ORDER IN PLACE.
[2022-11-11] MEDS: PHENYLEPHRINE 50 MG in IV NS 0.9% 245 ML IV PRN (02:46)
--- NOTE | 2022-11-11 02:55 | NUR ---
1ST BAG OF RBC INFUSION STARTED AT THIS TIME. WILL CONTINUE TO MONITOR.
--- NOTE | 2022-11-11 03:19 | NUR ---
RN NOTE PT NOTED TO BE BRADYCARDIC AND EVENTUALLY FOUND ASYSTOLE; CODE BLUE CALLED. ER DR. SNOW AND RT AT BEDSIDE. Addendum: 11/11/22 at 0507 by PRINCESS LEON LORENZANA PEA
[2022-11-11] MEDS ORDERED: DEXTROSE 50%-WATER 50 ML DISP.SYRIN ONE ×2 (03:27→03:42)
--- NOTE | 2022-11-11 03:27 | NUR ---
ROSC ACHIEVED AT 0326. DURING CODE, BG CHECKED TWICE, NOTED TO BE LOW AT BOTH TIMES. [facility] NOTIFIED OF CODE BLUE
[2022-11-11] MEDS ORDERED: DEXTROSE 50%-WATER 50 ML DISP.SYRIN IVP ONE (03:42)
--- NOTE | 2022-11-11 03:54 | NUR ---
PT CODED FOR SECOND TIME, PEA ONCE AGAIN. ACLS PERFORMED WITH ER DR. SNOW AT BEDSIDE. PT AT 404, PRONOUNCED BY DR. SNOW.
[2022-11-11] MEDS ORDERED: EPINEPHRINE (1:10,000) SYRINGE 1 MG/10 ML DISP.SYRIN ONE (04:05)
[2022-11-11 04:12] LABS: BAND % (MANUAL) 5 % (0.0-5.0); BASOPHILS % (MANUAL) 0 % (0.0-2.0); EOSINOPHILS % (MANUAL) 10 % (0-4); LYMPHOCYTES % (MANUAL) 31 % (16-48); MONOCYTES % (MANUAL) 3 % (0-11.0); NEUTROPHILS % (MANUAL) 51 (42-76)
--- NOTE | 2022-11-11 04:43 | NUR ---
CALLED [employer] WITH [employer]NACK STEWARDESS HE. PER HE, WILL BE TAKING THE CASE CASE #[id number]
--- NOTE | 2022-11-11 04:52 | NUR ---
CALLED [employer] OFFICER[employer]S OFFICE AND SPOKE TO ELDA MONTEJO. PER ELDA, WILL NOT BE TAKING THE CASE. NO CASE NUMBER PROVIDED, PER ELDA THEY DO NOT GIVE OUT CASE NUMBERS WHEN CASE IS DENIED.
--- NOTE | 2022-11-11 07:00 | NUR ---
SECURITY AT BEDSIDE [facility]
[2022-11-11 07:07] LABS: IMMUNOGLOBULIN A, SERUM 354 mg/dL (90-386); IMMUNOGLOBULIN G, SERUM 1083 mg/dL (603-1613); IMMUNOGLOBULIN M, SERUM 83 mg/dL (20-172)
[2022-11-11] MEDS ORDERED: CALCIUM CHLORIDE 1,000 MG/10 ML DISP.SYRIN IV ONE (07:14)
[2022-11-11] MEDS ORDERED: DEXTROSE 50%-WATER 50 ML DISP.SYRIN IV ONE (07:14)
[2022-11-11] MEDS ORDERED: SODIUM BICARBONATE SYR 50 MEQ/50 ML DISP.SYRIN IV ONE (10:25)
[2022-11-11] MEDS ORDERED: EPINEPHRINE (1:10,000) SYRINGE 1 MG/10 ML DISP.SYRIN IVP ONE (10:25)
== END 2022-11-11 07:15 | DRG 661 ==
LOC: ER 23:35 → ICU 11-09 01:35
PROVIDERS: ADMIT Internal Medicine; ATTEND Internal Medicine
PROC: 5A1945Z Respiratory Ventilation, 24-96 Consecutive Hours (ICD-10-PCS; principal; 2022-11-09)
PROC: 0BH17EZ Insertion of Endotracheal Airway into Trachea, Via Natural or Artificial Opening (ICD-10-PCS; 2022-11-09)
PROC: 5A2204Z Restoration of Cardiac Rhythm, Single (ICD-10-PCS; 2022-11-09)
PROC: 30233N1 Transfusion of Nonautologous Red Blood Cells into Peripheral Vein, Percutaneous Approach (ICD-10-PCS; 2022-11-09)
PROC: 30233K1 Transfusion of Nonautologous Frozen Plasma into Peripheral Vein, Percutaneous Approach (ICD-10-PCS; 2022-11-09)
PROC: 30233M1 Transfusion of Nonautologous Plasma Cryoprecipitate into Peripheral Vein, Percutaneous Approach (ICD-10-PCS; 2022-11-09)
PROC: 30233R1 Transfusion of Nonautologous Platelets into Peripheral Vein, Percutaneous Approach (ICD-10-PCS; 2022-11-09)
PROC: 02HV33Z Insertion of Infusion Device into Superior Vena Cava, Percutaneous Approach (ICD-10-PCS; 2022-11-09)
PROC: B548ZZA Ultrasonography of Superior Vena Cava, Guidance (ICD-10-PCS; 2022-11-09)
PROC: 02HV33Z Insertion of Infusion Device into Superior Vena Cava, Percutaneous Approach (ICD-10-PCS; 2022-11-09)
PROC: B548ZZA Ultrasonography of Superior Vena Cava, Guidance (ICD-10-PCS; 2022-11-09)
PROC: 06L38CZ Occlusion of Esophageal Vein with Extraluminal Device, Via Natural or Artificial Opening Endoscopic (ICD-10-PCS; 2022-11-09)
PROC: 5A2204Z Restoration of Cardiac Rhythm, Single (ICD-10-PCS; 2022-11-11)
DX: D65 Disseminated intravascular coagulation [defibrination syndrome] (principal); N17.0 Acute kidney failure with tubular necrosis; J96.01 Acute respiratory failure with hypoxia; R57.8 Other shock; D61.818 Other pancytopenia; I85.11 Secondary esophageal varices with bleeding; E72.20 Disorder of urea cycle metabolism, unspecified; D62 Acute posthemorrhagic anemia; E87.1 Hypo-osmolality and hyponatremia; E87.20 Acidosis, unspecified; E88.09 Other disorders of plasma-protein metabolism, not elsewhere classified; J90 Pleural effusion, not elsewhere classified; K76.82 Hepatic encephalopathy; K76.6 Portal hypertension; D68.9 Coagulation defect, unspecified; K70.30 Alcoholic cirrhosis of liver without ascites; E86.0 Dehydration; D64.9 Anemia, unspecified; F10.239 Alcohol dependence with withdrawal, unspecified; Y90.0 Blood alcohol level of less than 20 mg/100 ml; Z20.822 Contact with and (suspected) exposure to COVID-19; J98.11 Atelectasis; K31.9 Disease of stomach and duodenum, unspecified; E16.2 Hypoglycemia, unspecified; K52.9 Noninfective gastroenteritis and colitis, unspecified
CPT/HCPCS: 31720; 36415; 36600; 70450-TC; 71045-TC; 76770-TC; 80048-TC; 80053-TC; 80061-TC; 80076-TC; 81001; 82140-TC; 82570-TC; 82607-TC; 82728-TC; 82784; 82803-TC; 82962-TC; 83540-TC; 83605-TC; 83690-TC; 83735-TC; 84100-TC; 84155; 84165; 84300-TC; 84443-TC; 85025-TC; 85378-TC; 85385-TC; 85396; 85730-TC; 86140-TC; 86225; 86235; 86334; 86431-TC; 86706; 86803; 86850-TC; 87040-TC; 87340; 92950-TC; 94002-TC; 94003-TC; 94799-TC; A4223; C9113; G0378; G0480; J0171; J0696; J1200; J1442; J2060; J2354; J2370; J2405; J3411; J3430; J3475; J3490; J7030; J7040; J7050; J7060; J7070; J7120; P9012; P9016; P9017; Q9967